=== PATIENT | female | born 1970 | race Caucasian/White ===

== ENCOUNTER 2023-12-19 06:48 | Day surgery (SDC) | payer BC, OTHER ==
[~2023-12-19 06:48] MED LIST: Sodium Chloride 0.9% 10 ML Syringe FLUSH PRN
[2023-12-19] MEDS ORDERED: Propofol 200 MG/20 ML SDV IV ONE (06:49)
[2023-12-19] MEDS ORDERED: fentaNYL 100 MCG/2 ML SDV IV ONE (06:49)
[2023-12-19] MEDS ORDERED: Midazolam 1 MG/ML 2 ML SDV IV ONE (06:49)
[2023-12-19] MEDS: Lactated Ringers 1,000 ML IV SCH (07:41)
[2023-12-19] MEDS: Simethicone Drops 40 MG/0.6 ML 30 ML Bottle PO ONE (07:58)
== END 2023-12-19 09:40 | disposition home or self-care (01) ==
LOC: FB.SDS 06:48
PROVIDERS: ATTEND Surgery
DX: D12.6 Benign neoplasm of colon, unspecified (principal); R19.5 Other fecal abnormalities; D64.9 Anemia, unspecified; Z79.899 Other long term (current) drug therapy
CPT/HCPCS: 00811; 81025; 88305; A9270-GY; J2250; J2704; J3010; J7120